=== PATIENT | female | born 1965 | race Two or more races ===

== ENCOUNTER 2016-08-03 17:26 | Emergency (ER) | END 2016-08-03 21:00 | disposition left against medical advice (07) | DX: Z53.21 Procedure and treatment not carried out due to patient leaving prior to being seen by health care provider (principal) ==

== ENCOUNTER 2017-07-07 16:42 | Emergency (ER) | END 2017-07-07 18:40 | disposition left against medical advice (07) ==

== ENCOUNTER 2018-12-13 06:23 | Day surgery (SDC) | payer OTHER ==
[~2018-12-13] VITALS: Ht 157.5 cm; Wt 74.2 kg
[2018-12-13 07:20] VITALS: Ht 157.5 cm; Wt 74.2 kg
[2018-12-13 08:00] VITALS: BP 124/78; PULSE 58; RESP 16
[2018-12-13] MEDS ORDERED: MIDAZOLAM 1 MG/ML 2 ML INJ ONE ×3 (08:54→08:55)
[2018-12-13] MEDS ORDERED: FENTAnyl 50 MCG/ML VIAL ONE (08:54)
[2018-12-13 09:03] VITALS: BP 100/67; PULSE 77; RESP 14
== END 2018-12-13 13:51 | disposition home or self-care (01) ==
LOC: GIL 06:23
PROVIDERS: ATTEND Internal Medicine Gastroenterology
DX: K64.8 Other hemorrhoids (principal); K44.9 Diaphragmatic hernia without obstruction or gangrene; K21.9 Gastro-esophageal reflux disease without esophagitis; K29.60 Other gastritis without bleeding
CPT/HCPCS: 43239; 45378; 88305; 88312; J2250; J3010; Z7610